=== PATIENT | female | born 1990 | race African-American/Black ===

== ENCOUNTER 2019-09-18 21:06 | Emergency (ER) | payer OTHER, MEDICAID ==
[~2019-09-18] VITALS: Ht 149.9 cm; Wt 70.0 kg
[~2019-09-18 21:06] MED LIST: FERR1TAB25 PO; PREN-88 PO
[2019-09-18 23:56] LABS: BASOPHILS % 0.6 % (0.0-2.0); EOSINOPHILS % 0.8 % (0.0-5.0); HEMATOCRIT. 34.1 % (36.0-48.0); HEMOGLOBIN. 11.7 g/dL (12.0-16.0); LYMPHOCYTES % 22.5 % (20.0-50.0); MEAN CORPUSCULAR VOLUME 90.2 fL (81.0-99.0); MEAN PLATELET VOLUME 8.3 fl (7.4-10.4); MONOCYTES % 5.9 % (2.0-8.0); NEUTROPHILS % 70.2 % (40.0-76.0); PLATELET 223 x1000/uL (130-400); RED BLOOD CELL COUNT 3.78 mill/uL (4.2-5.4); RED CELL DISTRIBUTION WIDTH 15.1 % (11.6-14.6)
[2019-09-19 00:06] LABS: CHLORIDE 108 mEq/L (98-107)
[2019-09-19 00:29] VITALS: BP 110/65
[2019-09-19 00:32] LABS: B-HCG QUANTITATIVE 49882 mIU/mL (<3)
== END 2019-09-19 00:59 | disposition home or self-care (01) ==
LOC: ER 21:06
DX: O20.0 Threatened abortion (principal); Z3A.01 Less than 8 weeks gestation of pregnancy; Z98.890 Other specified postprocedural states
CPT/HCPCS: 36415; 76801; 80053; 81025; 84702; 85025; 86850; 86900; 99284

== ENCOUNTER 2019-10-06 16:48 | Emergency (ER) | payer MEDICAID, OTHER ==
[~2019-10-06] VITALS: Ht 147.3 cm; Wt 69.0 kg
[2019-10-07 00:04] LABS: BASOPHILS % 0.4 % (0.0-2.0); EOSINOPHILS % 1.3 % (0.0-5.0); HEMATOCRIT. 36.7 % (36.0-48.0); HEMOGLOBIN. 12.7 g/dL (12.0-16.0); MEAN CORPUSCULAR HEMOGLOBIN 31.3 pg (28.0-32.0); MEAN CORPUSCULAR VOLUME 90.4 fL (81.0-99.0); MONOCYTES % 5.2 % (2.0-8.0); NEUTROPHILS % 70.1 % (40.0-76.0); PLATELET 231 x1000/uL (130-400); RED BLOOD CELL COUNT 4.06 mill/uL (4.2-5.4); RED CELL DISTRIBUTION WIDTH 14.2 % (11.6-14.6)
[2019-10-07 00:05] LABS: CHLORIDE 103 mEq/L (98-107)
[2019-10-07 01:30] VITALS: BP 99/61
== END 2019-10-07 02:50 | disposition home or self-care (01) ==
LOC: ER 16:48
DX: O26.891 Other specified pregnancy related conditions, first trimester (principal); M79.661 Pain in right lower leg; Z3A.13 13 weeks gestation of pregnancy; Z98.890 Other specified postprocedural states
CPT/HCPCS: 36415; 80053; 81025; 85025; 93971; 99284

== ENCOUNTER 2020-11-20 12:24 | Emergency (ER) | payer MEDICAID, OTHER ==
[~2020-11-20] VITALS: Ht 149.9 cm; Wt 81.0 kg
[2020-11-20 12:27] VITALS: BP 106/70
[2020-11-20] MEDS ORDERED: TOPUD PO (13:17)
[2020-11-20] MEDS ORDERED: ACETAMINOPHEN 325MG TABLET PO ONE (13:30)
== END 2020-11-20 14:12 | disposition home or self-care (01) ==
LOC: ER 12:45
DX: M79.671 Pain in right foot (principal); Z86.718 Personal history of other venous thrombosis and embolism
CPT/HCPCS: 73630; 99283